=== PATIENT | female | born 2000 | race African-American/Black ===

== ENCOUNTER 2018-08-05 11:48 | Emergency (ER) | payer MEDICAID ==
[~2018-08-05] VITALS: Ht 180.3 cm; Wt 118.0 kg
[2018-08-05 12:03] VITALS: BP 121/70
--- NOTE | 2018-08-05 13:21 | NUR ---
PTS RIGHT ANKLE SPLINTED WITH AIR STIRRUP PER [facility]ATTS INSTRUCTIONS. PT PROVIDED WITH FITTED CRUTCHES AND CRUTCH EDUCATION. CMS INTACT S/P SPLINT PLACEMENT. PT GIVEN DC INSTRUCTIONS AND RX. PT AMB TO DC DESK WITH CRUTCH GAIT, NADN AT DC.
== END 2018-08-05 13:22 | disposition home or self-care (01) ==
LOC: ED 13:16
DX: M93.272 Osteochondritis dissecans, left ankle and joints of left foot (principal); S93.402A Sprain of unspecified ligament of left ankle, initial encounter; X50.1XXA Overexertion from prolonged static or awkward postures, initial encounter; Y93.89 Activity, other specified; Y92.410 Unspecified street and highway as the place of occurrence of the external cause; Y99.8 Other external cause status
CPT/HCPCS: 99283